=== PATIENT | male | born 1975 | race Caucasian/White ===

== ENCOUNTER 2017-01-29 21:17 | Emergency (ER) | payer MEDICAID ==
[~2017-01-29] VITALS: Ht 180.3 cm; Wt 109.3 kg
[2017-01-29 21:40] VITALS: BP 150/105
[2017-01-29] MEDS ORDERED: Mylanta II UD 30ml ORAL ONE (22:00)
[2017-01-29] MEDS ORDERED: Ketorolac 30mg Inj IV ONE (22:00)
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
[2017-01-29 22:31] LABS: BASOPHILS % (AUTO) 1.1 % (0.0-2.0); EOSINOPHILS % (AUTO) 1.3 % (0.0-3.0); LYMPHOCYTES % (AUTO) 33.9 % (20.0-45.0); MEAN CORPUSCULAR HEMOGLOBIN 32.8 PG (27.0-31.0); MEAN CORPUSCULAR HGB CONC 36.3 G/DL (32.0-36.0); MEAN CORPUSCULAR VOLUME 90 FL (80-99); MONOCYTES % (AUTO) 7.1 % (1.0-10.0); NEUTROPHILS % (AUTO) 56.6 % (45.0-75.0); PLATELET COUNT 275 K/UL (150-450); RED BLOOD COUNT 4.87 M/UL (4.70-6.10); RED CELL DISTRIBUTION WIDTH 12.4 % (11.6-14.8); WHITE BLOOD COUNT 10.2 K/UL (4.8-10.8)
[2017-01-29 22:32] LABS: KETONES,URINE NEGATIVE (NEGATIVE); LEUKOCYTE ESTERASE ,URINE 1+ (NEGATIVE); NITRITE,URINE NEGATIVE (NEGATIVE); PH,URINE 5 (4.5-8.0); PROTEIN,URINE 1+ (NEGATIVE); UROBILINOGEN,URINE NORMAL MG/DL (0.0-1.0)
[2017-01-29 22:33] LABS: APPEARANCE,URINE SLIGHTLY CLOUDY
[2017-01-29 22:34] LABS: BACTERIA,URINE FEW /HPF; ICTOTEST NEGATIVE; MUCUS,URINE MANY /LPF (NONE/OCC); RBC,URINE 0-2 /HPF (0 - 0); SQUAMOUS EPITHELIAL CELL,UR OCCASIONAL /LPF (NONE/OCC)
[2017-01-29 22:35] LABS: TROPONIN I < 0.30 ng/mL (<=0.30)
[2017-01-29 22:37] LABS: ALANINE AMINOTRANSFERASE 20 U/L (3-41); ALBUMIN/GLOBULIN RATIO 1.4 (1.0-2.7); ANION GAP 16 (5-15); ASPARTATE AMINO TRANSFERASE 16 U/L (5-40); CALCIUM 10.3 mg/dL (8.6-10.2); CARBON DIOXIDE 25 mEQ/L (20-30); CHLORIDE 99 mEQ/L (98-107); CREATININE 0.9 mg/dL (0.7-1.2); GLOMERULAR FILTRATION RATE > 60 mL/min (>60); HEMOLYSIS 6; SODIUM 140 mEQ/L (135-145); TOTAL PROTEIN 7.4 g/dL (6.6-8.7)
[2017-01-29 23:03] LABS: CKMB 4.8 ng/mL (< 6.7)
[2017-01-29 23:43] VITALS: BP 97/78
[2017-01-29 23:45] VITALS: BP 97/78
--- NOTE | 2017-01-30 11:07 | Diagnostic Imaging Report ---
Indication: Chest Pain Comparison: None A single view chest radiograph was obtained. Findings: Heart is normal in size. Lungs are clear. Suspect small hiatal hernia. Bones are unremarkable. Impression: No acute disease
--- NOTE | 2017-01-30 18:49 | Cardiology Report ---
APPROVED REPORT EKG Measurement Heart [id number] Normal sinus rhythm Normal ECG
== END 2017-01-29 23:45 | disposition home or self-care (01) ==
LOC: EMR 21:40
DX: R07.9 Chest pain, unspecified (principal); R09.1 Pleurisy; Z88.6 Allergy status to analgesic agent; Z88.0 Allergy status to penicillin; F19.21 Other psychoactive substance dependence, in remission; Z86.74 Personal history of sudden cardiac arrest; R06.02 Shortness of breath
CPT/HCPCS: 36415; 71010; 80053; 80300; 81003; 82550; 82553; 84484; 85025; 85379; 93005; 96374; 99284; J1885

== ENCOUNTER 2017-07-28 19:56 | Emergency (ER) | payer MEDICAID, OTHER ==
[~2017-07-28] VITALS: Ht 180.3 cm; Wt 117.9 kg
[2017-07-28 20:05] VITALS: BP 134/93
[2017-07-28] MEDS ORDERED: PRILOSEC2.5 MG ORAL (20:10)
[2017-07-28] MEDS ORDERED: GABAPENTIN600 MG ORAL (20:10)
[2017-07-28] MEDS ORDERED: ZOLOFT25 MG ORAL (20:10)
[2017-07-28] MEDS ORDERED: VITAMIN D400 INTLU ORAL (20:10)
[2017-07-28] MEDS ORDERED: TAMSULOSIN HCL0.4 MG ORAL (20:10)
[2017-07-28] MEDS ORDERED: HYDROCHLOROTHIA25 MG ORAL (20:10)
[2017-07-28] MEDS ORDERED: NORVASC2.5 MG ORAL (20:10)
[2017-07-28] MEDS ORDERED: NORVASC5 MG ORAL (20:10)
[2017-07-28] MEDS ORDERED: LIDODERM700 M1 TOPIC (21:22)
[2017-07-28 22:21] VITALS: BP 123/84
[2017-07-28 22:22] VITALS: BP 123/84
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
== END 2017-07-28 22:22 | disposition home or self-care (01) ==
LOC: EMR 20:42
DX: M53.3 Sacrococcygeal disorders, not elsewhere classified (principal); I10 Essential (primary) hypertension; Z88.6 Allergy status to analgesic agent; Z88.0 Allergy status to penicillin
CPT/HCPCS: 72220; 99283

== ENCOUNTER 2017-08-23 14:49 | Emergency (ER) | payer OTHER ==
[~2017-08-23] VITALS: Ht 172.7 cm; Wt 122.5 kg
[~2017-08-23 14:49] MED LIST: GABAPENTIN600 MG ORAL; HYDROCHLOROTHIA25 MG ORAL; Ketorolac 30mg Inj IV STA; LIDODERM700 M1 TOPIC; NORVASC2.5 MG ORAL; NORVASC5 MG ORAL; PRILOSEC2.5 MG ORAL; TAMSULOSIN HCL0.4 MG ORAL; VITAMIN D400 INTLU ORAL; ZOLOFT25 MG ORAL
[2017-08-23 14:50] VITALS: BP 132/86
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
[2017-08-23] MEDS ORDERED: Neosporin Oint Ud Pkt TOP ONE (15:00)
[2017-08-23] MEDS ORDERED: Lidocaine HCl 2% Jelly 5ml Tube TOPIC ONE (15:00)
[2017-08-23] MEDS ORDERED: Tetanus/Diptheria/Pertussis Vaccine 0.5ml Syr IM ONE (15:00)
[2017-08-23 15:44] LABS: EOSINOPHILS % (AUTO) 3.2 % (0.0-3.0); LYMPHOCYTES % (AUTO) 41.4 % (20.0-45.0); MEAN CORPUSCULAR HEMOGLOBIN 28.9 PG (27.0-31.0); MEAN CORPUSCULAR HGB CONC 32.4 G/DL (32.0-36.0); MEAN CORPUSCULAR VOLUME 89 FL (80-99); MEAN PLATELET VOLUME 6.3 FL (6.5-10.1); MONOCYTES % (AUTO) 5.8 % (1.0-10.0); NEUTROPHILS % (AUTO) 48.6 % (45.0-75.0); PLATELET COUNT 361 K/UL (150-450); RED BLOOD COUNT 5.05 M/UL (4.70-6.10); RED CELL DISTRIBUTION WIDTH 12.6 % (11.6-14.8); WHITE BLOOD COUNT 8.9 K/UL (4.8-10.8)
[2017-08-23] MEDS ORDERED: Morphine Sulfate 4mg/ml Inj IVP ONE ×2 (15:45→18:45)
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
[2017-08-23 16:30] VITALS: BP 128/89
[2017-08-23 17:49] LABS: APPEARANCE,URINE CLEAR; KETONES,URINE NEGATIVE (NEGATIVE); LEUKOCYTE ESTERASE ,URINE 1+ (NEGATIVE); NITRITE,URINE NEGATIVE (NEGATIVE); PH,URINE 6.5 (4.5-8.0); PROTEIN,URINE 2+ (NEGATIVE); UROBILINOGEN,URINE 1 MG/DL (0.0-1.0)
[2017-08-23 18:04] LABS: BACTERIA,URINE FEW /HPF; MUCUS,URINE MODERATE /LPF (NONE/OCC); RBC,URINE 0-2 /HPF (0 - 0)
[2017-08-23] MEDS ORDERED: fentaNYL 100 mcg/2 mL IV ONE (19:15)
[2017-08-23] MEDS ORDERED: TYLENOL325 MG ORAL (19:21)
[2017-08-23] MEDS ORDERED: NORCO 5-325 TA1 EACH ORAL (19:21)
[2017-08-23] MEDS ORDERED: Bacitracin Oint UD TOPIC ONE ×2 (19:50→20:00)
[2017-08-23] MEDS ORDERED: PERCOCET 5-3251 EACH ORAL (19:52)
[2017-08-23 20:18] VITALS: BP 122/80
[2017-08-23 20:40] VITALS: BP 122/80
== END 2017-08-23 20:40 | disposition home or self-care (01) ==
LOC: EDBD 14:49 → EMR 15:05
DX: S52.591A Other fractures of lower end of right radius, initial encounter for closed fracture (principal); S90.02XA Contusion of left ankle, initial encounter; S80.02XA Contusion of left knee, initial encounter; V28.0XXA Motorcycle driver injured in noncollision transport accident in nontraffic accident, initial encounter; Y92.414 Local residential or business street as the place of occurrence of the external cause; Z23 Encounter for immunization; I10 Essential (primary) hypertension; K21.9 Gastro-esophageal reflux disease without esophagitis; Z88.0 Allergy status to penicillin; Z88.6 Allergy status to analgesic agent
CPT/HCPCS: 29105; 36415; 73070; 73562; 73610; 81003; 85025; 85610; 85730; 90471; 90715; 96361; 96374; 96375; 96376; 99284; J1885; J2270; J3010; S0028

== ENCOUNTER 2018-01-12 12:39 | Emergency (ER) | payer OTHER ==
[~2018-01-12] VITALS: Ht 180.3 cm; Wt 117.9 kg
[~2018-01-12 12:39] MED LIST changes: -Ketorolac 30mg Inj IV STA; +NORCO 5-325 TA1 EACH ORAL; +PERCOCET 5-3251 EACH ORAL; +TYLENOL325 MG ORAL
[2018-01-12 12:54] VITALS: BP 139/93
--- NOTE | 2018-01-12 13:05 | Emergency Room Report ---
History of Present Illness General Chief Complaint: Eye Problems Source: Patient Present Illness HPI 42-year-old male presents to the emergency department complaining of swelling of the left eyelids with itching and intermittent dryness then increased lacrimation. Patient denies foreign body sensation or scratching sensation. Patient denies erythema. he reports some d/c when he awakens in the a.m. denies contact lens use. Denies: Pain, photophobia, Loss of vision, Floaters, Flashing lights, or Diplopia. He reports some blurry vision when his eye chavez. Denies nasal congestions, runny nose, sneezing, recent URI, persons with similar symptoms or hx of notable allergies. Pt. reports itching and swelling to be the two primary symptoms. Allergies: Coded Allergies: ASPIRIN (Verified Allergy, Unknown, 01/29/17) NSAIDS (NON-STEROIDAL ANTI-INFLAMMA (Verified Allergy, Unknown, 01/29/17) PENICILLINS (Verified Allergy, Unknown, 01/29/17) Patient History Past Medical History: see triage record Past Surgical History: none Pertinent Family History: none Reviewed Nursing Documentation: PMH: Agreed; PSxH: Agreed Nursing Documentation-PMH Past Medical History: No History, Except For Hx Hypertension: Yes Hx Gastrointestinal Problems: Yes - hepatitis C Review of Systems All Other Systems: negative except mentioned in HPI Physical Exam Vital Signs Date Time Temp Pulse Resp B/P (MAP) Pulse Ox O2 Delivery O2 Flow Rate FiO2 01/12/18 12:54 98.0 92 16 139/93 95 Room Air 98.1 Sp02 EP Interpretation: reviewed, normal General Appearance: no apparent distress, alert, GCS 15, non-toxic Head: normocephalic, atraumatic Eyes: left eye lid inflammation; bilateral eye normal inspection, bilateral eye PERRL, bilateral eye EOMI, bilateral eye visual acuity - 20/25, Left and right on their own are 20/40 each. , bilateral eye other - obvious stye or chalazion. obvious foreign body on lid flip ENT: hearing grossly normal, normal voice Neck: full range of motion Respiratory: lungs clear, normal breath sounds, speaking full sentences Musculoskeletal: back normal, gait/station normal, normal range of motion, non- tender Neurologic: alert, oriented x3, responsive, motor strength/tone normal, sensory intact, speech normal, grossly normal Psychiatric: judgement/insight normal Skin: normal color, no rash, warm/dry, well hydrated Lymphatic: no adenopathy Medical Decision Making PA Attestation Dr. marquez is my supervising Physician whom patient management has been discussed with. Diagnostic Impression: Primary Impression: Conjunctivitis Qualified Codes: H10.32 - Unspecified acute conjunctivitis, left eye Additional Impression: Allergic conjunctivitis Qualified Codes: H10.12 - Acute atopic conjunctivitis, left eye ER Course 42-year-old male presents to the emergency department complaining of swelling of the left eyelids with itching and intermittent dryness then increased lacrimation. Patient denies foreign body sensation or scratching sensation. Patient denies erythema. he reports some d/c when he awakens in the a.m. denies contact lens use. Denies: Pain, photophobia, Loss of vision, Floaters, Flashing lights, or Diplopia. He reports some blurry vision when his eye chavez. Denies nasal congestions, runny nose, sneezing, recent URI, persons with similar symptoms or hx of notable allergies. Pt. reports itching and swelling to be the two primary symptoms. Ddx considered but are not limited to: corneal abrasion, acute glaucoma, globe rupture, FB, Corneal Ulcer, conjunctivitis. Iridis, orbital cellulitis,keratitis , sinusitis Vital signs: are WNL, pt. is afebrile H&PE are most consistent with: Allergic conjunctivitis no obvious stye or chalazion. obvious foreign body on lid flip. I do not suspect corneal abrasion at this time his symptoms are isolated to primarily the left upper eyelid. ORDERS: none at this time. ED INTERVENTIONS: none at this time. DISCHARGE: At this time pt. is stable for d/c to home. Will provide printed patient care instructions, and any necessary prescriptions. Care plan and follow up instructions have been discussed with the patient prior to discharge. Last Vital Signs Date Time Temp Pulse Resp B/P (MAP) Pulse Ox O2 Delivery O2 Flow Rate FiO2 01/12/18 12:54 98.0 92 16 139/93 95 Room Air 98.1 Disposition: HOME, SELF-CARE Condition: Stable Scripts Eyelid Cleanser Comb No.7 (Ocusoft Lid Scrub) 50 Ml Foam..ml. 1 APPLIC TP BID, #50 ML Prov: Soco Daniel 01/12/18 Olopatadine Hcl (PATADAY) 2.5 Ml Drops 1 DROP OP DAILY, #2.5 ML Prov: Soco Daniel 01/12/18 Erythromycin Base (Erythromycin) 1 Gm Oint...g. 1 APPLIC OP TID, #1 GM Prov: Soco Daniel 01/12/18 Referrals: [facility],REFERRING (PCP) Patient Instructions: Allergic Conjunctivitis, [id number], Bacterial Conjunctivitis Additional Instructions: Take medications as directed. Follow up with a Primary Care Provider or inspector salvage in 3-5 days, even if your symptoms have resolved. --Please review list of primary care clinics, if you do not already have a primary care provider Return sooner to ED if new symptoms occur, or current symptoms become worse. - Please note that this Emergency Department Report was dictated using The [employer] rougher technology software, occasionally this can lead to erroneous entry secondary to interpretation by the dictation equipment. Soco Daniel Jan 12, 2018 13:05
[2018-01-12] MEDS ORDERED: OCUSOFT LID SCR50 M1 TP (13:19)
[2018-01-12] MEDS ORDERED: ERYTHROMYCIN1 G1 OP (13:19)
[2018-01-12] MEDS ORDERED: PATADAY2.5 ML OP (13:19)
[2018-01-12 13:31] VITALS: BP 139/93
== END 2018-01-12 13:37 | disposition home or self-care (01) ==
LOC: EMR 12:56
DX: H10.32 Unspecified acute conjunctivitis, left eye (principal); H10.12 Acute atopic conjunctivitis, left eye; I10 Essential (primary) hypertension; B19.20 Unspecified viral hepatitis C without hepatic coma; Z88.6 Allergy status to analgesic agent; Z88.0 Allergy status to penicillin
CPT/HCPCS: 99284

== ENCOUNTER 2018-01-21 02:07 | Emergency (ER) | payer OTHER ==
[~2018-01-21] VITALS: Ht 180.3 cm; Wt 122.5 kg
[~2018-01-21 02:07] MED LIST changes: +ERYTHROMYCIN1 G1 OP; +OCUSOFT LID SCR50 M1 TP; +PATADAY2.5 ML OP
[2018-01-21] MEDS ORDERED: Albuterol/Ipratropium 3ml neb HHN ONE (02:30)
[2018-01-21] MEDS ORDERED: Cephalexin 500mg cap ORAL ONE (02:30)
[2018-01-21] MEDS ORDERED: CEPHALEXIN500 MG ORAL (02:35)
[2018-01-21 02:36] VITALS: BP 125/90
[2018-01-21 02:56] VITALS: BP 125/90
[2018-01-21] MEDS ORDERED: ALBUTEROL SULF8.5 GM INH (03:05)
--- NOTE | 2018-01-21 03:46 | Emergency Room Report ---
History of Present Illness General Chief Complaint: Pain Source: Patient Present Illness HPI Patient is a 42-year-old male who presented after increased right great toe pain. Patient reported having prior history of ingrown toenail. Patient was reportedly the trying to treat his toenail by himself and subsequent noticed increased pain and swelling.The patient has prior history of hepatitis C as well as medication allergies.I he reports having prior history of emphysema. Allergies: Coded Allergies: ASPIRIN (Verified Allergy, Mild, 01/21/18) upset stomach NSAIDS (NON-STEROIDAL ANTI-INFLAMMA (Verified Allergy, Mild, 01/21/18) upset stomach PENICILLINS (Verified Allergy, Unknown, 01/21/18) Patient History Past Medical History: see triage record Reviewed Nursing Documentation: PMH: Agreed; PSxH: Agreed Nursing Documentation-PMH Hx Hypertension: Yes Hx COPD: Yes Hx Gastrointestinal Problems: Yes - hepatitis C Review of Systems All Other Systems: negative except mentioned in HPI Physical Exam Vital Signs Date Time Temp Pulse Resp B/P (MAP) Pulse Ox O2 Delivery O2 Flow Rate FiO2 01/21/18 02:11 98.4 85 16 125/90 85 Room Air 98.4 Sp02 EP Interpretation: reviewed, normal General Appearance: normal inspection, well appearing, no apparent distress, alert, GCS 15 Head: atraumatic ENT: normal ENT inspection, hearing grossly normal, normal voice Neck: normal inspection, full range of motion, supple, no bony tend Respiratory: normal inspection, no respiratory distress, no retraction, wheezing Cardiovascular #1: regular rate, rhythm, no edema Gastrointestinal: normal inspection, normal bowel sounds, non tender, soft, no guarding, no hernia Genitourinary: no CVA tenderness Musculoskeletal: normal inspection, back normal, normal range of motion Neurologic: normal inspection, alert, oriented x3, responsive, speech normal Psychiatric: normal inspection, judgement/insight normal, mood/affect normal Skin: normal inspection, other - minimal erythema, minimal soft tissue swelling or discharge Medical Decision Making Diagnostic Impression: Primary Impression: Ingrown toenail Additional Impression: COPD (chronic obstructive pulmonary disease) ER Course The patient presented for right ingrown toenail. Differential diagnoses included was not limited to cellulitis, osteomyelitis, fracture, abscess. Patient has a benign exam and does not appear to require any further imaging or laboratory testing at this time. The patient was given breathing treatment. The patient was noted to have improved breathing status The patient is advised to follow up with primary care doctor in 1-2 days. Patient is advised to return if any worsening condition or if any changes in status that are concerning. This report is dictated with [employer] director of education and training software which may occasionally lead to discrepancies related to use of this software. Last Vital Signs Date Time Temp Pulse Resp B/P (MAP) Pulse Ox O2 Delivery O2 Flow Rate FiO2 01/21/18 02:56 98.4 91 16 125/90 100 Room Air 98.4 Status: improved Disposition: HOME, SELF-CARE Condition: Stable Scripts Albuterol Sulfate* (ALBUTEROL SULFATE MDI*) 8.5 Gm Hfa.aer.ad 2 PUFF INH Q4H PRN for cough/wheezing, #1 EA 0 Refills Prov: Rudy Scanlon 01/21/18 Cephalexin* (KEFLEX*) 500 Mg Capsule 500 MG ORAL EVERY 6 HOURS, #20 CAP Prov: Rudy Scanlon 01/21/18 Patient Instructions: Incision and Drainage Rudy Scanlon January 21, 2018 03:46
== END 2018-01-21 02:57 | disposition home or self-care (01) ==
LOC: EMR 02:32
DX: L60.0 Ingrowing nail (principal); J44.9 Chronic obstructive pulmonary disease, unspecified; I10 Essential (primary) hypertension; B19.20 Unspecified viral hepatitis C without hepatic coma; Z88.0 Allergy status to penicillin; Z88.6 Allergy status to analgesic agent
CPT/HCPCS: 94640; 99284

== ENCOUNTER 2018-02-26 14:46 | Emergency (ER) | payer OTHER ==
[~2018-02-26] VITALS: Ht 180.3 cm; Wt 112.5 kg
[~2018-02-26 14:46] MED LIST changes: +ALBUTEROL SULF8.5 GM INH; +CEPHALEXIN500 MG ORAL
[2018-02-26 14:56] VITALS: BP 118/90
[2018-02-26] MEDS ORDERED: Albuterol ud Inhalation HHN ONE (15:30)
[2018-02-26 15:39] LABS: BASOPHILS % (AUTO) 1.2 % (0.0-2.0); HEMATOCRIT 41.5 % (42.0-52.0); HEMOGLOBIN 13.5 G/DL (14.2-18.0); LYMPHOCYTES % (AUTO) 27.5 % (20.0-45.0); MEAN CORPUSCULAR VOLUME 84 FL (80-99); MONOCYTES % (AUTO) 6.4 % (1.0-10.0); NEUTROPHILS % (AUTO) 62.9 % (45.0-75.0); PLATELET COUNT 376 K/UL (150-450); RED BLOOD COUNT 4.93 M/UL (4.70-6.10); RED CELL DISTRIBUTION WIDTH 15.6 % (11.6-14.8); WHITE BLOOD COUNT 7.7 K/UL (4.8-10.8)
[2018-02-26 15:41] LABS: ANION GAP 13 mmol/L (5-15); BLOOD UREA NITROGEN 12 mg/dL (7-18); CARBON DIOXIDE 25 MMOL/L (21-32); CHLORIDE 102 MMOL/L (98-107); CREATININE 1.1 MG/DL (0.55-1.30); POTASSIUM 3.4 MMOL/L (3.5-5.1); SODIUM 139 MMOL/L (136-145)
--- NOTE | 2018-02-26 15:45 | Emergency Room Report ---
History of Present Illness General Chief Complaint: Dyspnea/Respdistress Source: Patient, Medical Record Present Illness HPI 42-year-old male with a history of hypertension, COPD, and remote history of pneumothorax, presents with left-sided chest pressure like sensation for the last 3 days reports nothing makes it better or worse, denies cough, denies hemoptysis, does report he's been taking his inhaler, denies shortness of breath , reports no fevers, or any other symptomatology but reports that this feels similar to when he had a pneumothorax and he wanted to get checked out. He denies any recent travel, leg swelling, any other symptoms at all. He is not tried any medications for symptoms that is moderate in intensity, not positional , non-respirophasic, and it is more so just worrisome for him that it may be a pneumothorax. Allergies: Coded Allergies: ASPIRIN (Verified Allergy, Mild, 01/21/18) upset stomach NSAIDS (NON-STEROIDAL ANTI-INFLAMMA (Verified Allergy, Mild, 01/21/18) upset stomach PENICILLINS (Verified Allergy, Unknown, 01/21/18) Patient History Past Medical History: see triage record Reviewed Nursing Documentation: PMH: Agreed; PSxH: Agreed Nursing Documentation-PMH Past Medical History: No History, Except For Hx Hypertension: Yes Hx COPD: Yes Hx Gastrointestinal Problems: Yes - hepatitis C Review of Systems All Other Systems: negative except mentioned in HPI Physical Exam Vital Signs Date Time Temp Pulse Resp B/P (MAP) Pulse Ox O2 Delivery O2 Flow Rate FiO2 02/26/18 14:47 98.2 118 18 118/90 94 Room Air 98.2 02/26/18 15:22 21 Sp02 EP Interpretation: reviewed, normal General Appearance: no apparent distress, alert, non-toxic Head: normocephalic Eyes: bilateral eye normal inspection, bilateral eye PERRL, bilateral eye EOMI ENT: normal ENT inspection, hearing grossly normal, normal pharynx, no angioedema, normal voice, moist mucus membranes Neck: normal inspection, full range of motion, supple, supple/symm/no masses Respiratory: chest non-tender, lungs clear, normal breath sounds, chest symmetrical, palpation of chest normal Cardiovascular #1: normal peripheral pulses, regular rate, rhythm Cardiovascular #2: 2+ radial (R), 2+ radial (L), 2+ dorsalis pedis (R), 2+ dorsalis pedis (L) Gastrointestinal: normal inspection, non tender, soft, no mass, no guarding, no rebound Rectal: deferred Genitourinary: normal inspection, no CVA tenderness Musculoskeletal: back normal, gait/station normal, normal range of motion, non- tender, no calf tenderness, Irasema's Sign negative Neurologic: alert, responsive, wound care specialist III-XII nml as tested, motor strength/tone normal, sensory intact, speech normal Psychiatric: judgement/insight normal, memory normal, no suicidal/homicidal ideation, anxious Skin: normal color, no rash, warm/dry, normal turgor Lymphatic: no adenopathy Medical Decision Making Reaction to Intervention: Improved Diagnostic Impression: Primary Impression: COPD (chronic obstructive pulmonary disease) ER Course Other than tobacco use and hypertension, patient has no risk factors for acute coronary syndrome, his pain is more worrisome for pneumothorax, he has no other symptomatology that is concerning for ACS, and reports it just reminded him of when he had a pneumothorax and that's the only reason he came in, he is not having dynamic pain, it's been the same pain for the last 3 days. his workup was unremarkable he likely has pleurisy vs. anxiety mediated pain,not severe, do not suspect PE, will dc home. EKG Diagnostic Results EKG Time: 14:58 EP Interpretation: Sinus tachycardia, no ST-T changes, no TWI's, no S1Q3T3 Rate: normal Rhythm: NSR ST Segments: no acute changes ASA given to the pt in ED: Yes Rhythm Strip Diag. Results Rhythm Strip Time: 15:43 Rate: 91 Rhythm: NSR, no PVC's, no ectopy Chest X-Ray Diagnostic Results Chest X-Ray Diagnostic Results : Chest X-Ray Ordered: Yes # of Views/Limited/Complete: 1 View Indication: Chest Pain EP Interpretation: Yes Interpretation: no consolidation, no effusion, no pneumothorax, no acute cardiopulmonary disease Impression: No acute disease Electronically Signed by: Ava Moreno MD Last Vital Signs Date Time Temp Pulse Resp B/P (MAP) Pulse Ox O2 Delivery O2 Flow Rate FiO2 02/26/18 15:22 99 29 Room Air 21 02/26/18 15:22 96 02/26/18 14:56 98.2 118/90 98.2 Status: improved Disposition: HOME, SELF-CARE Condition: Stable AVA MORENO M.D Feb 26, 2018 15:45
[2018-02-26 15:52] LABS: ALANINE AMINOTRANSFERASE 22 U/L (12-78); ALBUMIN 3.5 G/DL (3.4-5.0); ALBUMIN/GLOBULIN RATIO 0.9 (1.0-2.7); ALKALINE PHOSPHATASE 65 U/L (46-116); ASPARTATE AMINO TRANSFERASE 12 U/L (15-37); BILIRUBIN,TOTAL 0.2 MG/DL (0.2-1.0)
[2018-02-26] MEDS ORDERED: IBUPROFEN600 MG ORAL (16:42)
[2018-02-26 16:51] VITALS: BP 118/90
--- NOTE | 2018-02-26 17:20 | Diagnostic Imaging Report ---
Indication: Shortness of breath Technique: One view of the chest Comparison: 01/29/2017 Findings: Lungs and pleural spaces are clear. Heart size is normal . There is suggestion of a small retrocardiac hiatal hernia Impression: No acute process
--- NOTE | 2018-02-27 14:04 | Cardiology Report ---
APPROVED REPORT EKG Measurement Heart [id number] Sinus tachycardia Otherwise normal ECG
== END 2018-02-26 16:51 | disposition home or self-care (01) ==
LOC: EMR 15:41
DX: J44.9 Chronic obstructive pulmonary disease, unspecified (principal); I10 Essential (primary) hypertension; Z88.0 Allergy status to penicillin; Z88.6 Allergy status to analgesic agent
CPT/HCPCS: 36415; 71045; 80053; 83880; 84484; 85025; 93005; 94640; 94664; 99283